=== PATIENT | male | born 1980 | race Two or more races ===

== ENCOUNTER 2025-04-29 15:02 | Emergency (ER) | payer OTHER ==
[2025-04-29 15:17] VITALS: BP 136/86; PULSE 95; RESP 18; TEMP 98.4; BMI 32.1
== END 2025-04-29 16:17 | disposition home or self-care (01) ==
LOC: FER 15:02
DX: R05.9 Cough, unspecified (principal); B34.9 Viral infection, unspecified; R09.89 Other specified symptoms and signs involving the circulatory and respiratory systems
CPT/HCPCS: 87637-QW; 99283-25